=== PATIENT | female | born 1970 | race Caucasian/White ===

== ENCOUNTER 2016-10-26 21:12 | Inpatient (IN) | payer OTHER ==
[~2016-10-26] VITALS: Ht 162.6 cm; Wt 71.0 kg
[~2016-10-26 21:12] MED LIST: ADDERALL 5 MG TAB PO SCH; QUEtiapine FUMARATE 100 MG TAB PO SCH
[2016-10-26] MEDS ORDERED: PROZ40CA PO (21:50)
[2016-10-26] MEDS ORDERED: LAMO100T PO (21:50)
[2016-10-26] MEDS ORDERED: ADDE20CA PO (21:50)
[2016-10-26] MEDS ORDERED: SERO1TAB2 PO (21:50)
[2016-10-26] MEDS ORDERED: LORazepam 0.5 MG TAB PO ONE (23:45)
[2016-10-26] MEDS ORDERED: LORazepam 1 MG TAB PO ONE (23:45)
[2016-10-27] MEDS ORDERED: ADDE5TAB5 PO (00:29)
[2016-10-27 01:45] VITALS: BP 122/94
[2016-10-27] MEDS ORDERED: traZODone 50 MG TAB PO PRN (02:30)
[2016-10-27] MEDS ORDERED: MOM 30ML SUSPENSION UDC PO PRN (02:30)
[2016-10-27] MEDS ORDERED: MAALOX 30 ML SUSP *UDC PO PRN (02:30)
[2016-10-27 08:55] VITALS: BP 96/55
[2016-10-27] MEDS ORDERED: FLUoxetine 20 MG CAP PO SCH (09:00)
[2016-10-27] MEDS: NICOTINE 21MG/24HR 1 EA TRANSDERMAL TD SCH (09:00)
[2016-10-27] MEDS ORDERED: lamoTRIgine 25 MG TAB PO SCH (09:00)
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
--- NOTE | 2016-10-27 10:30 | HPEPDOC ---
Medical History and Physical Date of Admission Oct 27, 2016 at 00:12 History and Physical PCP: None ATTENDING: Dr. Karl Andrews HPI: 46yoF admitted to [facility] for unspecified psychotic disorder, being medically examined today. Patient was transferred from [facility] for psychiatric evaluation. At that time the patient apparently admitted to being noncompliant with her medications according to the ED record. Patient is unable to participate with exam or history at this time. She was seen this morning by her psychiatrist and was apparently very lethargic. She was assisted back to bed. She had apparently received medications early this morning including Seroquel, Adderall, and Ativan. Seroquel, Adderall, Prozac currently discontinued. History is taken from the chart. PMHx: Hypertension History of kidney stone Bipolar disorder PSHX: Cholecystectomy Hysterectomy Exploratory laparoscopy SOCHX: Resides in: [facility] Marital Status: Tobacco use: Smoker ETOH: denies Illicit Drugs: Denies as per ED record IV Drug Use: Denies Tattoos done unprofessionally: Denies FAMHX: not able to provide at this time. ROS: Pt is not able to provide at this time, ED record remarkable only for hysterectomy. PE: Pt not able to participate at this time. From [facility]. A&P: 46yoF admitted to [facility] for unspecified psychotic disorder 1. Psych. Plan per Psychiatry. Obtain baseline EKG to assure the safety of psychiatric medications as they can prolong the QT interval. 2. Nicotine dependence. Patch available. 3. Lethargy. Medications are held as per Psychiatry. Update EKG. Update CBC/CMP/ UA/UC. 4. Follow up. No Primary Care Provider. Will attempt to establish PCP on discharge. Vital Signs Vital Signs Date Time Temp Pulse Resp B/P (MAP) Pulse Ox O2 Delivery O2 Flow Rate FiO2 10/27/16 08:55 74 96/55 (69) 10/27/16 01:45 98.0 20 Room Air 10/27/16 01:10 96 Home Medications Scheduled Amphetamine/Dextroamphetamine (Adderall 5 mg) 1 Tab Tab, 20 MG PO QHS Fluoxetine HCl (Prozac) 40 Mg Cap, 40 MG PO DAILY Quetiapine Fumarate (Seroquel) 300 Mg Tab, 300 MG PO QHS Allergies Coded Allergies: Cefixime (Verified Allergy, Intermediate, itching, 10/26/16) Levofloxacin (Verified Allergy, Intermediate, sores and febrile, 10/26/16) Sodium Benzoate (Verified Allergy, Intermediate, itching, 10/26/16) Sulfa Antibiotics (Verified Allergy, Intermediate, itching, 10/26/16) Morphine (Unverified Allergy, Unknown, 10/26/16) pt denies this allergy. Allergy written on transfer paperwork. Nitrofurantoin (Unverified Allergy, Unknown, 10/26/16) Pt denies this allergy, but is written on transfer paperwork. Peace Elizalde Oct 27, 2016 10:30
[2016-10-27 13:15] VITALS: BP 98/70
[2016-10-27 18:00] VITALS: BP 102/62
[2016-10-27] MEDS ORDERED: QUEtiapine FUMARATE 200 MG TAB PO ONE (22:15)
[2016-10-28 07:11] VITALS: BP_SYST 109; BP_SYST 129; BP_DIAS 67; BP_DIAS 73
[2016-10-28 07:12] LABS: MEAN CORPUSCULAR HEMOGLOBIN 29.7 pg (27.0-33.0); MEAN CORPUSCULAR HGB CONC 32.7 g/dl (32.0-36.5); MEAN CORPUSCULAR VOLUME 90.8 fl (80.0-96.0); RED CELL DISTRIBUTION WIDTH 13.5 % (11.5-14.5); WHITE BLOOD COUNT 8.4 K/mm3 (4.0-10.0)
[2016-10-28 07:39] LABS: ALBUMIN 3.6 GM/DL (3.2-5.2); ALBUMIN/GLOBULIN RATIO 1.16 (1.00-1.93); ALKALINE PHOSPHATASE 106 U/L (45-117); ALT/SGPT 30 U/L (12-78); ANION GAP 9 MEQ/L (8-16); AST/SGOT 39 U/L (15-37); BILIRUBIN,TOTAL 0.3 MG/DL (0.2-1.0); BLOOD UREA NITROGEN 14 MG/DL (7-18); CALCIUM LEVEL 8.4 MG/DL (8.5-10.1); CARBON DIOXIDE LEVEL 26 MEQ/L (21-32); CHLORIDE LEVEL 107 MEQ/L (98-107); CREATININE FOR GFR 0.66 MG/DL (0.55-1.02); GLOMERULAR FILTRATION RATE > 60.0 (>58); GLUCOSE, FASTING 95 MG/DL (70-105); POTASSIUM SERUM 3.4 MEQ/L (3.5-5.1); SODIUM LEVEL 142 MEQ/L (136-145); TOTAL PROTEIN 6.7 GM/DL (6.4-8.2)
[2016-10-28] MEDS: NICOTINE 21MG/24HR 1 EA TRANSDERMAL TD SCH (08:54)
[2016-10-28] MEDS: ACETAMINOPHEN TAB 650MG DOSE (2X325MG) PO PRN (11:17)
[2016-10-28 18:00] VITALS: BP 122/65
--- NOTE | 2016-10-28 18:27 | ECGEPIP ---
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
[2016-10-28] MEDS: QUEtiapine FUMARATE 200 MG TAB PO SCH (20:37)
[2016-10-29 07:00] VITALS: BP 113/58
[2016-10-29] MEDS: NICOTINE 21MG/24HR 1 EA TRANSDERMAL TD SCH (08:53)
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
[2016-10-29] MEDS: ACETAMINOPHEN TAB 650MG DOSE (2X325MG) PO PRN (11:46)
[2016-10-29 18:00] VITALS: BP 144/75
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
[2016-10-29] MEDS: QUEtiapine FUMARATE 200 MG TAB PO SCH (20:12)
[2016-10-30 06:10] VITALS: BP 110/59
[2016-10-30] MEDS: NICOTINE 21MG/24HR 1 EA TRANSDERMAL TD SCH ×2 (09:00→15:14)
[2016-10-30] MEDS: ACETAMINOPHEN TAB 650MG DOSE (2X325MG) PO PRN ×2 (12:28→21:24)
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
[2016-10-30 18:00] VITALS: BP 102/58
[2016-10-30] MEDS: QUEtiapine FUMARATE 200 MG TAB PO SCH (21:24)
[2016-10-31 06:10] VITALS: BP 146/82
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
[2016-10-31] MEDS: ACETAMINOPHEN TAB 650MG DOSE (2X325MG) PO PRN (09:45)
[2016-10-31] MEDS: NICOTINE 21MG/24HR 1 EA TRANSDERMAL TD SCH (09:46)
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
== END 2016-10-31 13:05 | disposition home or self-care (01) | DRG 753 ==
LOC: M ED 22:50 → M ED INP 10-27 00:12 → M PSY 10-27 01:15
PROVIDERS: ADMIT Psychiatry & Neurology Psychiatry; ATTEND Psychiatry & Neurology Child & Adolescent Psychiatry
DX: F31.9 Bipolar disorder, unspecified (principal); Z91.14 Patient's other noncompliance with medication regimen; I10 Essential (primary) hypertension; G47.00 Insomnia, unspecified; Z90.49 Acquired absence of other specified parts of digestive tract; Z90.710 Acquired absence of both cervix and uterus; Z72.0 Tobacco use; Z88.2 Allergy status to sulfonamides; Z88.5 Allergy status to narcotic agent; Z88.1 Allergy status to other antibiotic agents